=== PATIENT | male | born 2005 | race African-American/Black ===

== ENCOUNTER 2023-05-17 14:59 | Emergency (ER) | payer OTHER, SELFPAY ==
[2023-05-17] MEDS ORDERED: Bacitracin 1 PK ONE (16:10)
== END 2023-05-17 16:18 | disposition home or self-care (01) ==
LOC: CSHERS 14:59
DX: S01.81XA Laceration without foreign body of other part of head, initial encounter (principal); F17.200 Nicotine dependence, unspecified, uncomplicated; W10.9XXA Fall (on) (from) unspecified stairs and steps, initial encounter
CPT/HCPCS: 12011; 70450